=== PATIENT | female | born 1955 | race Hispanic/Latino ===

== ENCOUNTER 2019-03-01 10:04 | Outpatient (CLI) | payer MEDICARE ==
--- NOTE | 2019-03-01 13:57 | Mammography Report ---
BILATERAL DIGITAL SCREENING MAMMOGRAMS WITH CAD INDICATION: Screening. COMPARISONS: None available. However, she indicated that she had had a prior mammogram in 2018 at [facility]. FINDINGS: Craniocaudal and mediolateral oblique views of both breasts were obtained using 2-D digital acquisition. In addition to standard review, the examination was analyzed for possible abnormalities using a computer-assisted detection device (iCAD). The breasts are almost entirely fatty. Right upper outer parenchymal asymmetries require comparison with the prior mammogram or additional i maging. No architectural distortion or suspicious calcifications. The left breast is negative. IMPRESSION: Comparison with the previous mammogram is required. We will attempt to obtain a prior mammogram for c omparison. If we do not obtain a prior mammogram within 30 days, a revised report will be issued lucio mmending a recall for additional imaging. Please be advised that the patient should not schedule an a ppointment for return until adequate time (at least 2 weeks) has passed breast to obtain the prior ma mmogram. BI-RADS CATEGORY 0: INCOMPLETE - NEED ADDITIONAL IMAGING EVALUATION AND/OR PRIOR MAMMOGRAMS FOR COMP ARISON Information is entered into a reminder system for a target due date for the next mammogram. The resul ts and recommendations were sent to the patient by mail. Signer Name: Max Saxena MD Signed: 03/01/2019 1:53 PM Workstation Name: [id number]
--- NOTE | 2019-03-01 13:59 | Mammography Report ---
BONE DEXA CLINICAL: Postmenopausal. Loss of height. TECHNIQUE: 2 site bone DEXA performed on an Hologic scanner. FINDINGS: The average BMD of the lumbar spine L1-L4 is 1.427g/cm squared with a T score of +3.5 and a Z score o f +5.2. The average total BMD of the left hip is 1.043 g/cm squared with a T score of +0.8and a Z score of +2 .1. IMPRESSION: 1. WHO classification: Normal with average fracture risk based on spine measurements. 2. WHO classification Normal with average fracture risk based on left hip measurements. RECOMMENDATION: Clinical correlation and routine screening. Definitions: BMD equal bone mineral density T score = BMD related to peak bone mass of young adult ([place] expressed an standard deviation) Z score = age-matched BMD expressed in SD World health organization (WHO) diagnostic criteria Normal T score greater than equal to 1 standard deviation Osteopenia T score between -1 and -2.4 standard deviation Osteoporosis T score -2.5 standard deviation or below. Note: BMD is not the only risk factor for fracture; also consider factors such as the patient's age, risk of falling, previous osteoporotic fracture, family history of osteoporotic fractures, current sm oker and low body weight. Z scores are not calculated if greater than 80 years of age. Signer Name: Max Saxena MD Signed: 03/01/2019 1:55 PM Workstation Name: [id number]
== END 2019-03-01 10:05 | disposition home or self-care (01) ==
LOC: MAMMO 10:04
PROVIDERS: ATTEND Obstetrics & Gynecology
DX: Z12.31 Encounter for screening mammogram for malignant neoplasm of breast (principal); Z13.820 Encounter for screening for osteoporosis; Z78.0 Asymptomatic menopausal state
CPT/HCPCS: 77067; 77080

== ENCOUNTER 2020-07-17 11:43 | Outpatient (CLI) | payer MEDICARE ==
--- NOTE | 2020-07-17 16:27 | Mammography Report ---
DIGITAL SCREENING MAMMOGRAM WITH CAD HISTORY: Screening mammogram. Patient reports a rash which is currently being treated by a dermatolog ist. TECHNIQUE: Routine digital mammographic imaging performed. This examination was interpreted with horacio escobedo of Computer-aided Detection analysis. COMPARISON: 03/01/2019. FINDINGS: Breast Density: scattered fibroglandular appearance of the breast tissue. Digital CC and MLO views demonstrate increased trabecular markings and skin thickening within the ant erior right breast. This could be related to patient's reported rash. A right upper outer breast foca l asymmetry is stable and per report has been present on prior outside images (not available currentl y). No suspicious findings within the left breast. CAD was utilized. IMPRESSION: There are increased trabecular markings and skin thickening within the anterior right breast. The pat ient reports (on the screening mammogram questionnaire) having a breast rash currently being treated by aerodynamics teacher. This appearance could be related to the patient's rash/infection. Recommend clinica l correlation with the area of the patient's skin condition. If the skin condition is in this region and resolves completely, a routine screening mammogram in one year would be appropriate. However, if the skin condition is in a different region and/or symptoms do not completely resolve, it is recommen ded the patient return for diagnostic evaluation, as inflammatory breast cancer can have similar appe arance. These findings and recommendations were left via messaging for Dr. Moss's office at 16:20 on 2020. BIRADS 2: Benign Finding(s). FURTHER INFORMATION: According to the [employer], yearly mammograms are recommend ed starting at age 40 and continuing as long as a woman is in good health. Clinical Breast Exams shou ld be part of a periodic health exam-about every 3 years for women in their 20s and 30s and every yea r for women 40 and over. Breast self exam is an option for women starting in their 20s. Any breast ch jessenia noted on a breast self exam should be reported promptly to the patient's healthcare provider. Br east MRI is recommended for women with an approximately 20-25% or greater lifetime risk of breast can cer, including women with a strong family history of breast or ovarian cancer and women who have been treated for Hodgkin's disease. A negative Mammography report should not discourage follow up or biopsy of a clinically significant f inding and/or abnormality. Dense breast tissue may obscure small neoplasms. The patient will be entered into a reminder system with a target due date for the next screening mamm ogram. Signer Name: Ian Bardales MD Signed: 07/17/2020 4:22 PM Workstation Name: [id number]
== END 2020-07-17 11:44 | disposition home or self-care (01) ==
LOC: SPVWC 11:43
PROVIDERS: ATTEND Obstetrics & Gynecology
DX: Z12.31 Encounter for screening mammogram for malignant neoplasm of breast (principal)
CPT/HCPCS: 77067